=== PATIENT | male | born 1985 | race Caucasian/White ===

== ENCOUNTER 2024-02-14 11:18 | Emergency (ER) | payer OTHER, SELFPAY ==
[2024-02-14 11:26] VITALS: BP 162/109
--- NOTE | 2024-02-14 12:25 | ED.GENMED ---
History of Present Illness
General
Chief Complaint: Chest Pain
Source: patient
Time Seen by Provider: 02/14/24 11:55
History of Present Illness
History of Present Illness:
38-year-old male with past medical history of GERD presenting to the emergency department for evaluation of sternal chest discomfort that began gradually yesterday around 10 AM and has been constant since, today slightly worse prompting ER
evaluation. Patient states no exacerbating or alleviating factors although does feel symptoms seem to be slightly worse than laying reclined but does note last night he did not have any difficulty sleeping. There are no associated symptoms
including cough, shortness of breath, pleurisy, hemoptysis, fevers or infectious symptoms, back or flank pain, nausea, vomiting or other GI related symptoms. Patient denies any history of similar. Did not take anything for symptoms prior to
arrival. States pain is currently a 2 or 3 out of 10. Social history was noncontributory. Family history was noted for father having triple bypass in his 60s. Patient does note his son was sick this week with croup but he himself has not had any
URI-like symptoms.
Past History
Past History
ED Past Medical History: GERD and Other (Hidradenitis suppurativa, diverticulitis)
ED Past Surgical History: Other (Scalp abscess, perirectal abscess)
Social History
Tobacco: Non-smoker
Alcohol: None
Drug: None
Personal:
Living: with family
Employment: Employed
Review of Systems
Review of Systems
All Other Systems: ROS reviewed and negative except as documented in HPI and ROS
Phy Exam
Physical Exam
Physical Exam:
GENERAL: Alert , in no apparent distress
EYE: clear conjunctiva b/l
HEAD: NCAT
ENT: mmm.
CARDIAC: Regular rate and rhythm, no murmur.
LUNGS: Clear breath sounds bilaterally, no acute respiratory distress, no wheezes/rales/rhonchi, faintly reproducible tenderness just over the sternum
ABDOMEN: Soft, without focal tenderness, no r/g, no cvat
NEUROLOGICAL: Alert and oriented
SKIN: Warm and dry, skin intact.
MUSCULOSKELETAL: No edema, well perfused.
PSYCH: Normal and appropriate interaction.
Scores
Heart Failure Risk
Heart Failure Risk Score: Not Applicable
Heart Score for Chest Pain Patients
STEMI patient?: No
History: Slightly or Non-Suspicious
ECG: Normal
Age: </= 45 years
Risk Factors: 1 or 2 Risk Factors
Troponin: </= Normal Limit
Heart Score for Chest Pain Patients: 1
Heart Score Risk: 2.5% MACE over next 6 weeks
Withdrawal Assessment of Alcohol
Withdrawal Assessment Completed?: Not applicable
Course
Orders/Labs/Results
Orders:
Orders
02/14/24 11:20
ECG [Electrocardiogram (*1)] Urgent
Reason for Study: Chest Pain
EKG- Treatment ONCE
02/14/24 11:55
CR Chest - 2 Views Urgent
Comment:
Reason For Exam: chest pain
02/14/24 13:06
Complete Blood Count/With Diff Urgent
Comprehensive Metabolic Panel Urgent
Troponin I Urgent
Abnormal Lab Results
02/14/24
13:06
Abs Immat Gran (auto) 0.1 H 10^3/uL
(0-0.05)
Immature Gran % 2.0 H %
(0-0.5)
Lymphocytes % 18.8 L %
(20.5-51.1)
Monocytes % 9.5 H %
(1.7-9.3)
Glucose 102 H mg/dl
(70-99)
02/14/24 13:06
02/14/24 13:06
Vital Signs
Initial and Last Documented VS:
Initial Vital Signs
Temp Pulse Resp BP Pulse Ox
98.1 F 82 18 162/109 99
02/14/24 11:26 02/14/24 11:26 02/14/24 11:26 02/14/24 11:26 02/14/24 11:26
Last Documented Vital Signs
Temp Pulse Resp BP Pulse Ox
98.1 F 59 11 131/95 99
02/14/24 11:26 02/14/24 14:00 02/14/24 14:00 02/14/24 14:00 02/14/24 14:00
MDM/Problems Addressed
Differential Diagnosis Includes:
Musculoskeletal chest wall pain, less concern for ACS or angina, pericarditis/myocarditis, no symptoms to suggest PE, referred GI
MDM/Problems Addressed:
38-year-old male presenting to the emergency department for evaluation of sternal chest pain that started yesterday morning, persisted into today prompting ER visit. EKG done in triage is nonischemic and without any acute abnormalities. Will check
labs, chest x-ray and reassess. Clinically I suspect is most likely diagnosis. Musculoskeletal etiology given low risk chest pain will help arrange for outpatient follow-up assuming normal labs and tests. Patient agreeable with this plan
*Radiology
Radiology exam reviewed: preliminary read by ED provider (Normal chest x-ray)
*Pulse Oximetry
Patient hypoxic: no
*EKG
Comparison EKG: no comparison EKG present
Heart Rate: 78
Rate: normal
Rhythm: sinus
[place]: normal axis
*Transfill Technician Interpretation
Rate: normal
Rhythm: sinus
*Critical Care Note
Total Time (30-74mins, 75-104mins- exclusive of procedures): Not Applicable
Patient Management
Escalation/DeEscalation of care consider admission/obs:
Patient's labs, imaging and EKG unremarkable. Suspect musculoskeletal etiology is most likely. Patient is low risk chest pain so will provide with information for chest pain hotline and outpatient follow-up. Stable for discharge home and aware of
return precautions to the emergency room.
ED Attending Note
-
Portions of this chart may have been created with voice recognition software.� Occasional wrong word or��sound alike� substitutions may have occurred due to the inherent limitations of voice recognition software.
Discharge Plan
Departure
Patient Disposition: Home (Routine Discharge)
Date of Disposition: 02/14/24
Time of Disposition: 14:03
Patient with high blood pressure during this ER visit?: Yes
Discharge Problem:
Chest pain, Elevated blood pressure reading
Instructions: Chest Pain DCA Follow Up
Prescriptions:
No Action
sulfamethoxazole-trimethoprim 1 TABLET tablet
1 tab PO BID Qty: 14 0RF
Referrals:
Gonsalo Eaton MD [Family Provider] -
Interventions
Interventions:
*Risk Screen - Suicide Last Done: 02/14/24 13:08
*General Assessment Last Done: 02/14/24 13:08
*Neglect/Abuse Screening Last Done: 02/14/24 13:08
ED- Fall Risk Assessment Last Done: 02/14/24 14:09
*ED COVID-19 Vaccine History Last Done: 02/14/24 13:08
*Nursing Disposition Last Done: 02/14/24 14:09
ED- Cardiac Assessment Last Done: 02/14/24 13:15
Discharge Date and Time
Discharge Date/Time: 02/14/24 14:10
Print Language: SAL[place]AD[place]
[2024-02-14 13:00] VITALS: BP 146/97
[2024-02-14 13:07] VITALS: BMI 32.6
[2024-02-14 13:24] LABS: % Basophils 1.4 % (0-2); % Eosinophils 5.7 % (0-6); % Lymphocytes 18.8 % (20.5-51.1); % Monocytes 9.5 % (1.7-9.3); % Neutrophils 62.6 % (42.2-75.2); Absolute Basophils 0.1 10^3/uL (0-0.2); Absolute Eosinophils 0.4 10^3/uL (0-0.7); Absolute Immature Granulocytes 0.1 10^3/uL (0-0.05); Absolute Lymphocytes 1.2 10^3/uL (1.2-3.4); Absolute Monocytes 0.6 10^3/uL (0.1-0.6); Absolute Neutrophils 4.1 10^3/uL (1.4-6.5); Hemoglobin 13.7 g/dL (13.0-18.0); Mean Corp Hgb Conc. 34.3 g/dL (33.0-37.0); Mean Corpuscular Hgb 27.5 pg (27.0-31.0); Mean Corpuscular Volume 80.3 fL (80.0-94.0); Mean Platelet Volume 9.4 fL (7.4-10.4); Nucleated Red Blood Cells % 0 % (-); Platelet Count 317 10^3/uL (130-400); Red Blood Cell Count 4.98 10^6/uL (4.70-6.10); Red Cell Dist. Width 13.1 % (11.5-14.5); White Blood Cell Count 6.5 10^3/uL (4.8-10.8)
[2024-02-14 13:38] LABS: ALT (SGPT) 11 U/L (0-50); AST (SGOT) 22 U/L (17-59); Albumin 4.8 g/dl (3.5-5.0); Alkaline Phosphatase 58 U/L (38-126); Blood Urea Nitrogen 12 mg/dl (9-20); Calcium 10.2 mg/dl (8.4-10.2); Carbon Dioxide 25 mmol/L (22-30); Chloride 102 mmol/L (98-107); Estimated Creatinine Clearance 109 ml/min; Glucose 102 mg/dl (70-99); Potassium 4.3 mmol/L (3.5-5.1); Sodium 141 mmol/L (135-145); Total Bilirubin 0.7 mg/dl (0.2-1.3); Total Protein 7.3 g/dl (6.3-8.2); eGFR > 60.00
[2024-02-14 13:49] LABS: Troponin I < 0.012 ng/ml
[2024-02-14 14:00] VITALS: BP 131/95
== END 2024-02-14 14:10 | disposition home or self-care (01) ==
LOC: EMR 11:18
PROVIDERS: Physician Assistant Medical; EMERGENCY PHYSICIAN Emergency Medicine; FAMILY PHYSICIAN Family Medicine
DX: R07.89 Other chest pain (principal); R03.0 Elevated blood-pressure reading, without diagnosis of hypertension; K21.9 Gastro-esophageal reflux disease without esophagitis
CPT/HCPCS: 99283; 71046; 80053; 84484; 85025; 93005

== ENCOUNTER → 2024-03-13 11:06 | Outpatient (REF) | payer OTHER, SELFPAY | LOC: RCS 11:06 | PROVIDERS: ATTENDING PHYSICIAN Internal Medicine Interventional Cardiology; FAMILY PHYSICIAN Family Medicine | DX: R07.89 Other chest pain (principal); Z82.49 Family history of ischemic heart disease and other diseases of the circulatory system | CPT/HCPCS: 93306 ==

== ENCOUNTER → 2024-03-16 09:38 | Outpatient (REF) | payer OTHER, SELFPAY | LOC: RCS 09:38 | PROVIDERS: ATTENDING PHYSICIAN Internal Medicine Interventional Cardiology; FAMILY PHYSICIAN Family Medicine | DX: R07.89 Other chest pain (principal); Z82.49 Family history of ischemic heart disease and other diseases of the circulatory system | CPT/HCPCS: 93017 ==